=== PATIENT | male | born 1955 | race Caucasian/White ===

== ENCOUNTER → 2016-12-05 | Outpatient (CLI) | payer OTHER ==
[~2016-12-05] MED LIST: CALCTAB7 PO; HYDR50TA3 PO; LOSA1TAB38 PO; NF454 PO; POTA10CA28 PO
[2016-12-05 18:19] LABS: SYNOVIAL FLUID APPEARANCE BLOODY; SYNOVIAL FLUID COLOR RED; SYNOVIAL FLUID MONONUC RELAT 25.7 %; SYNOVIAL FLUID POLYNUC RELAT 74.3 %
== END | disposition home or self-care (01) ==
LOC: C.LABSPEC 17:29
PROVIDERS: ATTEND Orthopaedic Surgery
DX: M70.21 Olecranon bursitis, right elbow (principal)

== ENCOUNTER → 2016-12-05 | Outpatient (CLI) | payer OTHER | END | disposition home or self-care (01) | LOC: C.PATHSPEC 16:59 | PROVIDERS: ATTEND Orthopaedic Surgery | DX: M70.21 Olecranon bursitis, right elbow (principal) ==

== ENCOUNTER → 2017-03-14 | Outpatient (CLI) | payer OTHER ==
[2017-03-20 07:47] LABS: ALBUMIN % 49.72 %; ALPHA-2-GLOBULIN % 18.63 %; BETA GLOBULIN % 18.54 %; CREATININE UR 186 MG/DL (20-370); GAMMA GLOBULIN % 9.73 %
== END | disposition home or self-care (01) ==
LOC: C.LABSPEC 07:00
PROVIDERS: ATTEND Internal Medicine Hematology & Oncology
DX: D47.2 Monoclonal gammopathy (principal)

== ENCOUNTER → 2017-03-17 | Outpatient (CLI) | payer OTHER ==
[2017-03-17 12:08] LABS: BASO % 0.1 %; BASO ABS # 0.01 K/uL (0-0.2); COMPLETE YES; EOS % 1.4 %; HEMATOCRIT 44.1 % (42-52); IG% 0.2 %; LYMPH ABS # 1.49 K/uL (1.2-3.4); MEAN CELL VOLUME 88.4 fL (80-100); MEAN CORPUSCULAR HEMOGLOBIN 29.9 pg (25-34); MEAN CORPUSCULAR HGB CONC 33.8 g/dl (32-36); MEAN PLATELET VOLUME 9.7 fL (7.4-10.4); MONO % 8.5 %; NEUT % 72.8 %; PLATELET COUNT 214 K/uL (130-400); RED BLOOD COUNT 4.99 M/uL (4.7-6.1); WHITE BLOOD COUNT 8.74 K/uL (4.8-10.8)
[2017-03-17 12:52] LABS: ALT/SGPT 25 U/L (12-78); AST/SGOT 10 U/L (15-37); BLOOD UREA NITROGEN 22 mg/dl (7-18); BUN/CREATININE RATIO 23.3 (10-20); CALCIUM 9.5 mg/dl (8.5-10.1); CARBON DIOXIDE 31 mmol/L (21-32); CHLORIDE 105 mmol/L (98-107); CREATININE 0.93 mg/dl (0.60-1.40); GLUCOSE 90 mg/dl (70-99); POTASSIUM 3.5 mmol/L (3.5-5.1); SODIUM 142 mmol/L (136-145)
[2017-03-17 12:55] LABS: ALKALINE PHOSPHATASE 65 U/L (45-117)
[2017-03-18 15:37] LABS: FREE KAPPA 20.8 MG/L (3.3-19.4); FREE KAPPA/LAMBDA RATIO 1.32 (0.26-1.65); FREE LAMBDA 15.8 MG/L (5.7-26.3); GAMMA GLOBULIN 0.8 G/DL (0.8-1.7); TOTAL PROTEIN 6.8 G/DL (6.2-8.3)
== END | disposition home or self-care (01) ==
LOC: C.LABPBG 07:51
PROVIDERS: ATTEND Internal Medicine Hematology & Oncology
DX: D47.2 Monoclonal gammopathy (principal)

== ENCOUNTER 2023-10-21 12:38 | Inpatient (IN) ==
--- NOTE | 2023-10-21 12:49 | Emergency Department Note ---
Impression & Plan Chest pain, Elevated LFTs, Shortness of breath, Bradycardia ED Provider Note NAME: SHAY CLARK AGE: 68 SEX: M : 1955 ARRIVES VIA: Ambulance INFORMANT: Patient, ED PROVIDER(S): Desean Masterson MD CHIEF COMPLAINT: MEDICAL DECISION MAKING: Patient presented due to concern for chest pain and shortness of breath. IV was established and blood work that was obtained. Blood work shows a normal white count H&H and platelet count with normal kidney function and normal electrolytes. Lyme is negative. The patient does have elevated LFTs with a bilirubin of 2.7 AST 315 and ALT of 446. The patient's chest x-ray does not show any acute concerning findings. The patient's blood work had a negative troponin. Patient did have a transaminitis but has no right upper quadrant pains or right upper quadrant ultrasound was ordered. Patient was noted to have cholelithiasis but no evidence of acute cholecystitis. No biliary ductal dilatation. Patient currently asymptomatic at bedside. It is to be the on-call hospital service Dr. Beltre and the patient was admitted to the medicine service Discussion w/ other healthcare providers: Dr. Beltre inpatient medicines are Prior /Outside records reviewed: None Differential diagnosis: Differential Diagnostics, as interpreted by me: ECG: Sinus bradycardia, rate of 53, normal intervals, normal axis no ST elevations, T wave inversions anteriorly. Cardiac monitoring: An order was placed for continuous cardiac monitoring. The monitor shows a rate of 57 with bradycardic and rhythm. Patient was placed on pulse oximetry Medical decision rules: Heart score Imaging studies: I informally interpreted the patient's chest x-ray which does not show obvious pneumonia with formal report to follow. HPI: Patient presents due to concern for shortness of breath associated chest pain. The patient initially had a bout of this on Thursday as he was about to get in his car to go to [place]. The patient states that his chest pain is centralized with bands radiating down either side of the front portion of his chest. Patient states that this subsided. The patient states that he did develop some exertional shortness of breath while trying to move a [employer] tree on Thursday and this also dissipated. Patient states that today he had some similar symptoms with associated shortness of breath and chest pain. The patient did present to a local EMS/fire station where he was noted to be bradycardic and the patient did receive aspirin as well as atropine. The patient did have virtual resolution of his symptoms thereafter. Patient denies any falls or trauma no upper respiratory symptoms. Patient denies any leg swelling or calf pain and no recent surgeries procedures or hospitalizations. No prior history of DVT or PE. Patient does take verapamil PAST MEDICAL HISTORY: See Below PAST SURGICAL HISTORY: See Below SOCIAL HISTORY: See Below HOME MEDICATIONS: See Below ALLERGIES: See Below VITALS: See Below PHYSICAL EXAMINATION: GENERAL: NAD, non-toxic. Wearing glasses EYE EXAM: Normal conjunctiva. PERRL, no anisocoria and EOM's grossly intact w/o pain. OROPHARYNX: Moist mucus membranes, grossly normal dentition. NECK: Supple, no nuchal rigidity, no adenopathy, non-tender. No signs of meningismus. FROM of the neck with good chin to chest and neck extension. No stridor. LUNGS: Clear to auscultation. Normal chest wall mechanics. HEART: Bradycardic and, no MRG. ABDOMEN: Abdomen soft, non-tender, no masses, no rebound or guarding. BACK: No CVA TTP. SKIN: No rashes and no bruising. UPPER EXTREMITIES: Upper extremities are grossly normal. LOWER EXTREMITIES: Grossly normal, no edema. Negative Homans' sign bilaterally NEURO EXAM: A&O x3, cranial nerves II-XII grossly intact, normal speech, moves all 4 extremities. Past Med/Surg History Medical History History of kidney stones Hypertension COVID-19 Social History Smoking Status: Never smoker Second Hand Exposure: No; Do You Dip or Chew Tobacco: No; Hx Alcohol Use: Yes Hx Substance Use: No Preferred Language: Macanese Communication Ability: Effective Bus Aide Required: No Beliefs That Will Affect Care: None Current Living Situation: Spouse Other Information That Helps Us Care for You: No Feels Safe at Home: Yes Safety Concerns: Feels Safe At This Time Assistive Devices: None Allergies Allergies Allergy/AdvReac Type Severity Reaction Status Date / Time No Known Allergies Allergy Verified 10/21/23 16:58 Home Meds Home Medications Medication Instructions Recorded Confirmed hydrochlorothiazide 50 mg tablet 50 mg PO DAILY 07/26/21 10/21/23 losartan 100 mg tablet 100 mg PO DAILY 07/26/21 10/21/23 potassium chloride 20 mEq 40 meq PO DAILY 07/26/21 10/21/23 tablet,extended release(part/cryst) verapamil 240 mg 24 hr 240 mg PO DAILY 07/26/21 10/21/23 capsule,extended release cholecalciferol (vitamin D3) 50 150 mcg PO DAILY 10/21/23 10/21/23 mcg (2,000 unit) capsule (Vitamin D3) Results & Data (ED) Vital Signs Vital Signs - 24 hr 10/21/23 17:30 10/21/23 17:40 10/21/23 17:45 Pulse Rate 38 L 40 L 38 L Pulse Rate from SpO2 Sensor 39 L 39 L Respiratory Rate 16 12 Pulse Oximetry 97 98 Home Medications Current Medication List: was personally reviewed by me Laboratory Data Attestation: I reviewed the patient's lab results. 10/22/23 06:56 10/22/23 06:56 Lab Results 10/21/23 10/21/23 Range/Units 12:50 16:40 WBC 7.67 (4.8-10.8) K/ul RBC 5.04 (4.70-6.10) M/uL Hgb 14.9 (14.0-18.0) g/dl Hct 43.6 (42.0-52.0) % MCV 86.5 (80.0-100.0) fL MCH 29.6 (25.0-34.0) pg MCHC 34.2 (32.0-36.0) g/dL RDW Std Deviation 38.4 (36.4-46.3) fL RDW Coeff of Al 12.1 (11.5-14.5) % Plt Count 231 (130-400) K/uL MPV 10.0 (9.4-12.4) fL Immature Gran % (Auto) 0.5 % Neut % (Auto) 75.7 % Lymph % (Auto) 13.3 % [place] % (Auto) 8.7 % Eos % (Auto) 1.4 % Baso % (Auto) 0.4 % Neut # (Auto) 5.80 (1.40-6.50) K/uL Lymph # (Auto) 1.02 L (1.20-3.40) K/uL [place] # (Auto) 0.67 H (0.11-0.59) K/uL Eos # (Auto) 0.11 (0.00-0.50) K/uL Baso # (Auto) 0.03 (0.00-0.20) K/uL Immature Gran # (Auto) 0.04 (0.01-0.20) K/uL PT 11.8 (9.0-12.0) Seconds INR 1.1 (0.9-1.1) APTT 28 (21-31) Seconds PTT Ratio 1.0 Sodium 142 (136-145) mmol/L Potassium 3.6 (3.5-5.1) mmol/L Chloride 104 (98-107) mmol/L Carbon Dioxide 30 (21-32) mmol/L Anion Gap 8 (3-11) BUN 24 H (6-23) mg/dl Creatinine 1.06 (0.6-1.4) mg/dl Est Cr Clr Drug Dosing 77.5 ml/min Est GFR ( Amer) 82.6 ml/min Est GFR (Non-Af Amer) 71.3 ml/min BUN/Creatinine Ratio 22.6 H (10-20) Glucose 104 H (70-99(Fasting)) mg/dl Calcium 9.8 (8.6-10.3) mg/dl Phosphorus 3.2 (2.5-4.9) mg/dl Magnesium 1.9 (1.7-2.4) mg/dl Iron 109 (35-175) mcg/dl TIBC 293 (250-450) mcg/dl Unsaturated IBC 184 (155-355) mcg/dl Transferrin % Sat 37 (20-50) % Total Bilirubin 2.7 H (0.2-1.0) mg/dl AST 315 H (13-39) U/L ALT 446 H (7-52) U/L Alkaline Phosphatase 191 H (34-104) U/L Total Creatine Kinase 95 (30-223) U/L Troponin I High Sens 9.5 10.4 (0-20) pg/ml Total Protein 7.6 (6.0-8.3) gm/dl Albumin 4.4 (3.4-5.0) gm/dl Globulin 3.2 (2.5-4.0) gm/dl Albumin/Globulin Ratio 1.4 (0.9-2) Lipase 38 (11-82) U/L TSH 1.318 (0.300-4.500) uIu/ml Acetaminophen < 3 L (10-30) ug/ml Ethyl Alcohol mg/dL < 10.0 (<10.0) mg/dl Lyme Disease IgG Ab Negative (Negative) Lyme Disease IgM Ab Negative (Negative) Administered Medications Lorazepam 0.5 mg/ Syringe 0.5 mls @ 2 mls/min IV ONE PRN PRN Reason: 30 mins - 1 hour prior to MRI Stop: 11/20/23 18:26 Last Admin: 10/21/23 19:20 Dose: 2 mls/min Documented By: ZULY Lactated Ringer's (Lr) 1,000 mls @ 125 mls/hr IV .Q8H YURIY Stop: 11/20/23 20:47 Last Admin: 10/22/23 14:44 Dose: 125 mls/hr Documented By: Infusion: 10/22/23 14:35 Dose: Infused Documented By: Admin: 10/22/23 06:30 Dose: 125 mls/hr Documented By: Infusion: 10/22/23 06:19 Dose: Infused Documented By: Admin: 10/21/23 22:19 Dose: 125 mls/hr Documented By: GH Losartan Potassium (Losartan Potassium 50 Mg Tab) 100 mg PO DAILY YURIY Stop: 11/21/23 08:59 Last Admin: 10/22/23 10:12 Dose: 100 mg Documented By: Potassium Chloride (Potassium Chloride Crtab 20 Meq Tabcr) 40 meq PO DAILY YURIY Stop: 11/21/23 08:59 Last Admin: 10/22/23 10:12 Dose: 40 meq Documented By: Discontinued Medications Hydrochlorothiazide (Hydrochlorothiazide 25 Mg Tab) 50 mg PO DAILY YURIY Stop: 11/21/23 08:59 Last Admin: 10/22/23 10:13 Dose: 50 mg Documented By: Sodium Chloride (Nss) 500 mls @ 999 mls/hr IV .Q31M ONE Stop: 10/21/23 14:28 Last Infusion: 10/21/23 14:46 Dose: Infused Documented By: Admin: 10/21/23 14:12 Dose: 999 mls/hr Documented By: HOSEA Imaging Data Radiologist's Impression: Chest X-Ray 10/21/23 12:56 XR chest 1V portable HISTORY: 68 years-old Male Chest pain, nonspecific COMPARISON: 07/26/2021 TECHNIQUE: AP view of the chest FINDINGS: Cardiac silhouette is enlarged. There is no pneumothorax, pleural effusion or airspace consolidation. The patient is mildly rotated towards the left. Unchanged sclerotic appearance of the shoulders, possibly representing Paget's disease. IMPRESSION: No acute process of the chest. ACT 112: Negative or not required by law. The above report was generated using voice recognition software. It may contain grammatical, syntax or spelling errors. Electronically signed by: Ronny Alexandra M.D. 10/21/2023 1:34 PM Gallbladder Ultrasound 10/21/23 13:58 US gallbladder CLINICAL HISTORY: Transaminitis. COMPARISON STUDY: No previous studies for comparison. FINDINGS: Hepatic echogenicity is increased. No suspicious hepatic lesions are present. There is a 1.1 cm hepatic cyst. There is no biliary ductal dilatation. Common bile duct measures 6 mm in caliber. A gallstone within the gallbladder is present. No sonographic Medel sign was elicited. Mild gallbladder distention is noted. There is no gallbladder wall thickening. Pancreatic body is normal. Head and tail are obscured. There is no right hydronephrosis. 2.3 cm right renal cyst is incidentally noted. IMPRESSION: 1. Cholelithiasis. No sonographic evidence for acute cholecystitis. 2. Increased hepatic echogenicity suggestive of hepatic steatosis. 3. No biliary ductal dilatation. ACT 112: Negative or not required by law. Electronically signed by: Benedict Barrera M.D. 10/21/2023 3:50 PM Cholangiopancreatography MRI 10/21/23 17:35 Exam(s): MRI MRCP EXAM: MR Abdomen Without Intravenous Contrast, MRCP Protocol CLINICAL HISTORY: Reason for exam: ?choledocholithiasis. TECHNIQUE: Multiplanar magnetic resonance images of the abdomen without intravenous contrast using MRCP protocol. COMPARISON: No relevant prior studies available. FINDINGS: Bile ducts: Common bile duct is unremarkable. No choledocholithiasis. Common bile duct is within normal limits. Pancreatic duct is unremarkable. Gallbladder: Cholelithiasis. Liver: Multiple intrahepatic cysts. Pancreas: Unremarkable. No ductal dilation. Spleen: Unremarkable. No splenomegaly. Adrenals: Unremarkable. No mass. Kidneys and ureters: Unremarkable. No hydronephrosis. Stomach and bowel: Unremarkable. No obstruction. IMPRESSION: Cholelithiasis without evidence of acute cholecystitis No choledocholithiasis. Electronically signed by: Tutu Maher MD 10/21/23 21:26 PM Discharge Plan Visit Data Chief Complaint: Bradycardia ED Provider: Desean Masterson Discharge Problem: Chest pain, Elevated LFTs, Shortness of breath, Bradycardia Patient Disposition: Admitted As Inpatient Discharge Instructions Interventions: ED Discharge Assessment Last Done: 10/21/23 19:50 Discharge Problem: Chest pain Qualifiers: Chest pain type: unspecified Qualified Code(s): R07.9 - Chest pain, unspecified
[2023-10-21 13:14] LABS: Basophils # (auto) 0.03 K/uL (0.00-0.20); Basophils % (auto) 0.4 %; Eosinophils # (auto) 0.11 K/uL (0.00-0.50); Eosinophils % (auto) 1.4 %; Hematocrit (blood only) 43.6 % (42.0-52.0); Hemoglobin 14.9 g/dl (14.0-18.0); Immature Granulocytes # (auto) 0.04 K/uL (0.01-0.20); Immature Granulocytes % (auto) 0.5 %; Lymphocytes # (auto) 1.02 K/uL (1.20-3.40); Lymphocytes % (auto) 13.3 %; Mean Corpuscular Hemoglobin 29.6 pg (25.0-34.0); Mean Corpuscular Hgb Conc 34.2 g/dL (32.0-36.0); Mean Corpuscular Volume 86.5 fL (80.0-100.0); Monocytes # (auto) 0.67 K/uL (0.11-0.59); Monocytes % (auto) 8.7 %; Neutrophils % (auto) 75.7 %; Platelet Count 231 K/uL (130-400); RDW Coefficient of Variation 12.1 % (11.5-14.5); RDW Standard Deviation 38.4 fL (36.4-46.3); Red Blood Count 5.04 M/uL (4.70-6.10); White Blood Count 7.67 K/ul (4.8-10.8)
[2023-10-21 13:27] LABS: Albumin Globulin Ratio 1.4 (0.9-2); Albumin Level 4.4 gm/dl (3.4-5.0); BUN Creatinine Ratio 22.6 (10-20); Bilirubin,Total 2.7 mg/dl (0.2-1.0); Calcium 9.8 mg/dl (8.6-10.3); Creatinine Clr Calc Pharmacy 77.5 ml/min; Est GFR (African American) 82.6 ml/min; Est GFR (Non-African American) 71.3 ml/min; Globulin 3.2 gm/dl (2.5-4.0); Magnesium 1.9 mg/dl (1.7-2.4); Phosphorus 3.2 mg/dl (2.5-4.9); Potassium 3.6 mmol/L (3.5-5.1); Total Protein 7.6 gm/dl (6.0-8.3)
[2023-10-21 13:31] LABS: Troponin I High Sensitivity 9.5 pg/ml (0-20)
--- NOTE | 2023-10-21 13:37 | XRay Report ---
XR chest 1V portable HISTORY: 68 years-old Male Chest pain, nonspecific COMPARISON: 07/26/2021 TECHNIQUE: AP view of the chest FINDINGS: Cardiac silhouette is enlarged. There is no pneumothorax, pleural effusion or airspace consolidation. The patient is mildly rotated towards the left. Unchanged sclerotic appearance of the shoulders, pos sibly representing Paget's disease. IMPRESSION: No acute process of the chest. ACT 112: Negative or not required by law. The above report was generated using voice recognition software. It may contain grammatical, syntax o r spelling errors. Electronically signed by: Ronny Alexandra M.D. 10/21/2023 1:34 PM
[2023-10-21 13:38] LABS: INR 1.1 (0.9-1.1); Partial Thromboplastin Time 28 Seconds (21-31); Prothrombin Time 11.8 Seconds (9.0-12.0)
[2023-10-21 13:44] LABS: Lyme Ab IgG w/WB Rflx Negative (Negative); Lyme Ab IgM w/WB Rflx Negative (Negative)
[2023-10-21] MEDS ORDERED: SODIUM CHLORIDE 0.9% 500 ML IV ONE (13:58)
--- NOTE | 2023-10-21 15:52 | Ultrasound Report ---
US gallbladder CLINICAL HISTORY: Transaminitis. COMPARISON STUDY: No previous studies for comparison. FINDINGS: Hepatic echogenicity is increased. No suspicious hepatic lesions are present. There is a 1. 1 cm hepatic cyst. There is no biliary ductal dilatation. Common bile duct measures 6 mm in caliber. A gallstone within the gallbladder is present. No sonographic Medel sign was elicited. Mild gallblad nyla distention is noted. There is no gallbladder wall thickening. Pancreatic body is normal. Head and tail are obscured. There is no right hydronephrosis. 2.3 cm right renal cyst is incidentally noted. IMPRESSION: 1. Cholelithiasis. No sonographic evidence for acute cholecystitis. 2. Increased hepatic echogenicity suggestive of hepatic steatosis. 3. No biliary ductal dilatation. ACT 112: Negative or not required by law. Electronically signed by: Benedict Barrera M.D. 10/21/2023 3:50 PM
--- NOTE | 2023-10-21 17:12 | History & Physical Report ---
Date of Service October 21, 2023 Assessment & Plan (1) Elevated LFTs: Plan: Suspect he is having biliary colic and choledocholithiasis although given absence of pain currently suspect he has passed the stone or just no longer obstructing. Will get MRCP to evaluate whether ERCP is necessary, defer gastroenterology consult pending result of this Trend LFTs No fever, WBC or imaging changes concerning for infection therefore holding off antibiotics currently Ultimately I suspect he will need cholecystectomy for biliary colic with elevation in LFTs unless alternative cause of his symptoms can be found (2) Sinus bradycardia: Plan: Reports HR 44 in his PCP office 2 weeks ago therefore low suspicion this is acute and driving his symptoms; his heart rate is still low in the 30s and patient is asymptomatic. Low suspicion of ACS given 4 hours of pain today and entire day of pain on Thursday without elevation in troponin Hold verapamil - only need to treat with further atropine if hypotensive, pat ient symptomatic or HR < 30 Consult cardiology (3) Hypertension: Plan: Continue losartan and hydrochlorothiazide Hold verapamil Plan VTE Prophylaxis - deferred on admission pending further workup Diet - NPO Disposition - admit to PCU Admission and Anticipated Discharge Date Admission Date: October 21, 2023 History of Present Illness Chief Complaint: Epigastric pain and shortness of breath Primary Care Provider: Mart Davalos Aman Garcia is a 68 year old male who presents to the ER with shortness of breath and epigastric pain. The two symptoms appear to correlate and are intermittent - he is currently pain free with no shortness of breath when seen in the ER. Epigastric pain today started around 9am - started mildly and progressively got worse. Improved with atropine given by EMS and IV fluids given in the ER. Associated nausea. Pain constant in upper abdomen radiating to both sides. Severity 8/10 at worse which occurred within a half hour of starting. Lasted total of 4 hours. No association with exertion or eating. He was given atropine by EMS due to bradycardia which he reports helped his symptoms although his heart rate is currently in the low 30s and he is not having any symptoms at this time. He notes two other similar episodes on Thursday and Thursday. 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 On Thursday it occurred while dragging the [employer] tree although this was more shortness of breath than the pain. He reports no recent changes to his medications and he has been on verapamil for years with no recent changes to the dosing. Although he does note during his last PCP appointment 2 weeks ago his heart rate was low in the 40s and his doctor did mention something about the verapamil but he stopped the tamsulosin at that time instead. He denies any prior issues with his liver, gallbladder or gallstones. Allergies Allergy/AdvReac Type Severity Reaction Status Date / Time No Known Allergies Allergy Verified 10/21/23 16:58 Home Medications Medication Instructions Recorded Confirmed Type hydrochlorothiazide 50 mg tablet 50 mg PO DAILY 07/26/21 10/21/23 History losartan 100 mg tablet 100 mg PO DAILY 07/26/21 10/21/23 History potassium chloride 20 mEq 40 meq PO DAILY 07/26/21 10/21/23 History tablet,extended release(part/cryst) verapamil 240 mg 24 hr 240 mg PO DAILY 07/26/21 10/21/23 History capsule,extended release cholecalciferol (vitamin D3) 50 150 mcg PO DAILY 10/21/23 10/21/23 History mcg (2,000 unit) capsule (Vitamin D3) Past Med/Surg History Medical History (Updated 10/22/23 @ 06:33 by Brandon Beltre MD) History of kidney stones Hypertension COVID-19 Social History Smoking Status: Never smoker Second Hand Exposure: No; Do You Dip or Chew Tobacco: No; Hx Alcohol Use: Yes Hx Substance Use: No Preferred Language: Ukrainian Communication Ability: Effective 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 Beliefs That Will Affect Care: None Current Living Situation: Spouse Other Information That Helps Us Care for You: No Feels Safe at Home: Yes Safety Concerns: Feels Safe At This Time Assistive Devices: Glasses Review of Systems Review of Systems: All systems reviewed & are unremarkable except as noted in HPI & below Physical Exam Constitutional: WD/WN, vitals as above Eyes: + anicteric sclerae; normal pupil size ENMT: external ear and nose normal, oropharynx normal Neck: trachea midline, no thyromegaly Respiratory: normal respiratory effort, lungs clear to auscultation Cardiovascular: Rate/Rhythm: regular rhythm and + bradycardic Heart Sounds: no murmur Extremities: normal capillary refill; no calf tenderness and no pedal edema Gastrointestinal (Abdomen): Inspection/Auscultation: abdomen normal to inspection; abdomen not distended Percussion/Palpation: + abdomen tender (mild epigastric, no RUQ pain) and abdomen soft; no guarding and abdomen not rigid Musculoskeletal: no cyanosis or clubbing, extremities motor strength 5/5 Skin: no rashes, warm and dry Neurologic: moves all extremities and awake; not confused Psychiatric: A+Ox3, euthymic affect Results & Data Results & Data Vital Signs (Past 12 Hours) Vital Signs Temp Pulse Pulse Resp BP BP Pulse Ox 10/21/23 15:00 54 L 20 159/88 H 96 10/21/23 13:07 58 L 18 159/88 H 97 10/21/23 13:07 97 10/21/23 13:03 58 L 18 98 10/21/23 12:51 36.8 C 53 L 18 159/88 H 95 10/21/23 12:50 55 L O2 Del Method 10/21/23 15:00 10/21/23 13:07 Room Air 10/21/23 13:07 Room Air 10/21/23 13:03 Room Air 10/21/23 12:51 Room Air 10/21/23 12:50 Laboratory Results Abnormal lab results 10/21/23 10/21/23 Range/Units 12:50 16:40 Lymph # (Auto) 1.02 L (1.20-3.40) K/uL [place] # (Auto) 0.67 H (0.11-0.59) K/uL BUN 24 H (6-23) mg/dl BUN/Creatinine Ratio 22.6 H (10-20) Glucose 104 H (70-99(Fasting)) mg/dl Total Bilirubin 2.7 H (0.2-1.0) mg/dl AST 315 H (13-39) U/L ALT 446 H (7-52) U/L Alkaline Phosphatase 191 H (34-104) U/L Acetaminophen < 3 L (10-30) ug/ml Diagnostic Findings XR chest 1V portable HISTORY: 68 years-old Male Chest pain, nonspecific COMPARISON: 07/26/2021 TECHNIQUE: AP view of the chest FINDINGS: Cardiac silhouette is enlarged. There is no pneumothorax, pleural effusion or airspace consolidation. The patient is mildly rotated towards the left. Unchanged sclerotic appearance of the shoulders, possibly representing Paget's disease. IMPRESSION: No acute process of the chest. US gallbladder CLINICAL HISTORY: Transaminitis. COMPARISON STUDY: No previous studies for comparison. FINDINGS: Hepatic echogenicity is increased. No suspicious hepatic lesions are present. There is a 1.1 cm hepatic cyst. There is no biliary ductal dilatation. Common bile duct measures 6 mm in caliber. A gallstone within the gallbladder is present. No sonographic Medel sign was elicited. Mild gallbladder distention is noted. There is no gallbladder wall thickening. Pancreatic body is normal. Head and tail are obscured. There is no right hydronephrosis. 2.3 cm right renal cyst is incidentally noted. IMPRESSION: 1. Cholelithiasis. No sonographic evidence for acute cholecystitis. 2. Increased hepatic echogenicity suggestive of hepatic steatosis. 3. No biliary ductal dilatation. Medications Administered ER Medications Given: Normal saline 500 mL bolus ECG Rate (beats per minute): 53 Rhythm: sinus bradycardia Findings: + nonspecific-ST abn Comparison ECG Date: from (July 26, 2021) Code Status & VTE Plan Code Status Full VTE Prophylaxis Plan VTE Prophylaxis will be ordered: No PG Care Time/CCT Total # of Minutes Spent Total Time Spent with Patient: Total time spent is greater than 50% in coordination of care (as documented) at patient's floor/unit and/or counseling patient: Coding Level of Care Code 54966 INT INP/OBS CARE 3/75MIN Diagnoses Elevated LFTs R79.89 Sinus bradycardia R00.1 Hypertension I10
[2023-10-21 17:17] LABS: Troponin I High Sensitivity 10.4 pg/ml (0-20)
[2023-10-21 17:24] LABS: Thyroid Stimulating Hormone 1.318 uIu/ml (0.300-4.500)
[2023-10-21] MEDS ORDERED: LORazepam 0.5 MG in SYRINGE 0.25 ML IV PRN (18:27)
--- NOTE | 2023-10-21 18:44 | XRay Report ---
XR orbits for MRI HISTORY: 68 years-old Male Screening for foreign body for MRI COMPARISON: Head CT 07/26/2021 TECHNIQUE: 3 views of the orbits FINDINGS: No opaque foreign body of the orbits. Paranasal sinuses and mastoid air cells appear clear. Dental am algam hardware. IMPRESSION: No opaque foreign body in the orbits. ACT 112: Negative or not required by law. The above report was generated using voice recognition software. It may contain grammatical, syntax o r spelling errors. Electronically signed by: Ronny Alexandra M.D. 10/21/2023 6:43 PM
--- NOTE | 2023-10-21 21:27 | Magnetic Resonance Report ---
Exam(s): MRI MRCP EXAM: MR Abdomen Without Intravenous Contrast, MRCP Protocol CLINICAL HISTORY: Reason for exam: ?choledocholithiasis. TECHNIQUE: Multiplanar magnetic resonance images of the abdomen without intravenous contrast using MRCP protocol. COMPARISON: No relevant prior studies available. FINDINGS: Bile ducts: Common bile duct is unremarkable. No choledocholithiasis. Common bile duct is within normal limits. Pancreatic duct is unremarkable. Gallbladder: Cholelithiasis. Liver: Multiple intrahepatic cysts. Pancreas: Unremarkable. No ductal dilation. Spleen: Unremarkable. No splenomegaly. Adrenals: Unremarkable. No mass. Kidneys and ureters: Unremarkable. No hydronephrosis. Stomach and bowel: Unremarkable. No obstruction. IMPRESSION: Cholelithiasis without evidence of acute cholecystitis No choledocholithiasis. Electronically signed by: Tutu Maher MD 10/21/23 21:26 PM
[2023-10-21] MEDS: LACTATED RINGER'S 1,000 ML IV SCH (22:19)
[2023-10-21] MEDS ORDERED: ATROPINE SULFATE 0.1 MG/ML 10ML SYR IV PRN (22:50)
[2023-10-22] MEDS: LACTATED RINGER'S 1,000 ML IV SCH ×3 (06:30→22:28)
[2023-10-22 07:34] LABS: Basophils # (auto) 0.02 K/uL (0.00-0.20); Basophils % (auto) 0.4 %; Eosinophils # (auto) 0.24 K/uL (0.00-0.50); Eosinophils % (auto) 4.3 %; Hematocrit (blood only) 39.2 % (42.0-52.0); Hemoglobin 13.6 g/dl (14.0-18.0); Immature Granulocytes # (auto) 0.02 K/uL (0.01-0.20); Immature Granulocytes % (auto) 0.4 %; Lymphocytes # (auto) 1.27 K/uL (1.20-3.40); Mean Corpuscular Hgb Conc 34.7 g/dL (32.0-36.0); Mean Corpuscular Volume 86.3 fL (80.0-100.0); Mean Platelet Volume 9.9 fL (9.4-12.4); Monocytes # (auto) 0.51 K/uL (0.11-0.59); Monocytes % (auto) 9.2 %; Neutrophils # (auto) 3.47 K/uL (1.40-6.50); Neutrophils % (auto) 62.7 %; Platelet Count 188 K/uL (130-400); RDW Coefficient of Variation 12.2 % (11.5-14.5); RDW Standard Deviation 38.5 fL (36.4-46.3); Red Blood Count 4.54 M/uL (4.70-6.10); White Blood Count 5.53 K/ul (4.8-10.8)
[2023-10-22 07:43] LABS: Albumin Level 3.8 gm/dl (3.4-5.0); BUN Creatinine Ratio 18.6 (10-20); Bilirubin Direct 2.8 mg/dl (0-0.2); Bilirubin,Total 5.1 mg/dl (0.2-1.0); Calcium 9.5 mg/dl (8.6-10.3); Creatinine Clr Calc Pharmacy 93.2 ml/min; Est GFR (African American) 102.5 ml/min; Est GFR (Non-African American) 88.5 ml/min; Potassium 3.8 mmol/L (3.5-5.1); Total Protein 6.6 gm/dl (6.0-8.3)
--- NOTE | 2023-10-22 08:42 | Hospitalist Progress Note ---
Date of Service October 22, 2023 Assessment & Plan (1) Elevated LFTs: Plan: Suspect he is having biliary colic and suspect he has passed the stone or just no longer obstructing. US without findings of cholecystitis, gallstones present, hepatic steatosis MRCP showed gallstones, negative for choledocholithiasis Trend LFTs - bilirubin increased, AST/ALT/ALK phos similar 10/22 remain elevated No fever, WBC or imaging changes concerning for infection therefore holding off antibiotics currently -consult general surgery (2) Sinus bradycardia: Plan: Reports HR 44 in his PCP office 2 weeks ago therefore low suspicion this is acute and driving his symptoms; his heart rate is still low in the 30s and patient is asymptomatic. Low suspicion of ACS given 4 hours of pain today and entire day of pain on Thursday without elevation in troponin Hold verapamil - only need to treat with further atropine if hypotensive, patient symptomatic or HR < 30 Consult cardiology (3) Hypertension: Plan: Continue losartan and hydrochlorothiazide Hold verapamil Plan VTE Prophylaxis - deferred on admission pending further workup Diet - NPO Disposition - admit to PCU Admission and Anticipated Discharge Date Admission Date: October 21, 2023 Physical Exam Physical Exam: PHYSICAL EXAMINATION Last 24h vital signs reviewed, see documentation in flowsheet General: comfortable appearing, no distress HEENT: Normocephalic, atraumatic, pupils round and equal, sclerae anicteric, no conjunctival injection, moist mucus membranes Lungs: Normal respiratory effort. Clear to auscultation bilaterally. No RRW Heart: Regular rate and rhythm, no murmurs. No JVD Abdomen: Soft, nontender, nondistended. Bowel sounds present. Extremities: Warm, dry, well-perfused. No extremity edema. Neuro: Alert and oriented x 4, face symmetric, moves 4 extremities well Psych: Normal affect and behavior Results & Data Results & Data Vital Signs (Past 12 Hours) Vital Signs Temp Pulse Pulse Resp BP Pulse Ox O2 Del Method 10/22/23 08:00 36.4 C L 50 L 16 129/71 96 Room Air 10/22/23 07:28 42 L 10/22/23 02:37 36.5 C 49 L 18 118/71 98 Room Air 10/21/23 23:03 37 L 10/21/23 22:54 36.8 C 39 L 17 115/71 97 Room Air 10/21/23 21:38 39 L 10/21/23 20:58 36.5 C 43 L 18 130/67 98 Room Air 10/21/23 20:48 36.5 C 43 L 18 130/67 98 Room Air Laboratory Results Chest X-Ray 10/21/23 12:56 XR chest 1V portable HISTORY: 68 years-old Male Chest pain, nonspecific COMPARISON: 07/26/2021 TECHNIQUE: AP view of the chest FINDINGS: Cardiac silhouette is enlarged. There is no pneumothorax, pleural effusion or airspace consolidation. The patient is mildly rotated towards the left. Unchanged sclerotic appearance of the shoulders, possibly representing Paget's disease. IMPRESSION: No acute process of the chest. ACT 112: Negative or not required by law. The above report was generated using voice recognition software. It may contain grammatical, syntax or spelling errors. Electronically signed by: Ronny Alexandra M.D. 10/21/2023 1:34 PM Gallbladder Ultrasound 10/21/23 13:58 US gallbladder CLINICAL HISTORY: Transaminitis. COMPARISON STUDY: No previous studies for comparison. FINDINGS: Hepatic echogenicity is increased. No suspicious hepatic lesions are present. There is a 1.1 cm hepatic cyst. There is no biliary ductal dilatation. Common bile duct measures 6 mm in caliber. A gallstone within the gallbladder is present. No sonographic Medel sign was elicited. Mild gallbladder distention is noted. There is no gallbladder wall thickening. Pancreatic body is normal. Head and tail are obscured. There is no right hydronephrosis. 2.3 cm right renal cyst is incidentally noted. IMPRESSION: 1. Cholelithiasis. No sonographic evidence for acute cholecystitis. 2. Increased hepatic echogenicity suggestive of hepatic steatosis. 3. No biliary ductal dilatation. ACT 112: Negative or not required by law. Electronically signed by: Benedict Barrera M.D. 10/21/2023 3:50 PM Cholangiopancreatography MRI 10/21/23 17:35 Exam(s): MRI MRCP EXAM: MR Abdomen Without Intravenous Contrast, MRCP Protocol CLINICAL HISTORY: Reason for exam: ?choledocholithiasis. TECHNIQUE: Multiplanar magnetic resonance images of the abdomen without intravenous contrast using MRCP protocol. COMPARISON: No relevant prior studies available. FINDINGS: Bile ducts: Common bile duct is unremarkable. No choledocholithiasis. Common bile duct is within normal limits. Pancreatic duct is unremarkable. Gallbladder: Cholelithiasis. Liver: Multiple intrahepatic cysts. Pancreas: Unremarkable. No ductal dilation. Spleen: Unremarkable. No splenomegaly. Adrenals: Unremarkable. No mass. Kidneys and ureters: Unremarkable. No hydronephrosis. Stomach and bowel: Unremarkable. No obstruction. IMPRESSION: Cholelithiasis without evidence of acute cholecystitis No choledocholithiasis. Electronically signed by: Tutu Maher MD 10/21/23 21:26 PM Orbit X-Ray 10/21/23 18:17 XR orbits for MRI HISTORY: 68 years-old Male Screening for foreign body for MRI COMPARISON: Head CT 07/26/2021 TECHNIQUE: 3 views of the orbits FINDINGS: No opaque foreign body of the orbits. Paranasal sinuses and mastoid air cells appear clear. Dental amalgam hardware. IMPRESSION: No opaque foreign body in the orbits. ACT 112: Negative or not required by law. The above report was generated using voice recognition software. It may contain grammatical, syntax or spelling errors. Electronically signed by: Ronny Alexandra M.D. 10/21/2023 6:43 PM Abnormal lab results 10/21/23 10/21/23 10/22/23 Range/Units 12:50 16:40 06:56 RBC 4.54 L (4.70-6.10) M/uL Hgb 13.6 L (14.0-18.0) g/dl Hct 39.2 L (42.0-52.0) % Lymph # (Auto) 1.02 L (1.20-3.40) K/uL [place] # (Auto) 0.67 H (0.11-0.59) K/uL BUN 24 H (6-23) mg/dl BUN/Creatinine Ratio 22.6 H (10-20) Glucose 104 H (70-99(Fasting)) mg/dl Total Bilirubin 2.7 H 5.1 H D (0.2-1.0) mg/dl Direct Bilirubin 2.8 H (0-0.2) mg/dl AST 315 H 249 H (13-39) U/L ALT 446 H 470 H (7-52) U/L Alkaline Phosphatase 191 H 213 H (34-104) U/L Acetaminophen < 3 L (10-30) ug/ml PG Care Time/CCT Total # of Minutes Spent Total Time Spent with Patient: Total time spent is greater than 50% in coordination of care (as documented) at patient's floor/unit and/or counseling patient: Coding Diagnoses Elevated LFTs R79.89 Sinus bradycardia R00.1 Hypertension I10
--- NOTE | 2023-10-22 08:55 | Electrocardiogram Report ---
Test Reason : Blood Pressure : / mmHG Vent. Rate : 053 BPM Atrial Rate : 053 BPM P-R Int : 158 ms QRS Dur : 104 ms QT Int : 428 ms P-R-T Axes : 049 024 058 degrees QTc Int : 401 ms Sinus bradycardia Diffuse Nonspecific T wave abnormality Abnormal ECG When compared with ECG of 26-JUL-2021 16:43, No significant change Confirmed by Steve Duong ([id number]) on 10/22/2023 8:55:15 AM Referred By: Confirmed By:Steve Duong
[2023-10-22] MEDS ORDERED: hydroCHLOROthiazide 25 MG TAB PO SCH (09:00)
[2023-10-22] MEDS ORDERED: POTASSIUM CHLORIDE CRTAB 20 MEQ TABCR PO SCH (09:00)
--- NOTE | 2023-10-22 09:50 | XCELERA ---
[id number]
[2023-10-22] MEDS: LOSARTAN POTASSIUM 50 MG TAB PO SCH (10:12)
--- NOTE | 2023-10-22 10:20 | Surgery Consultation ---
Date of Consultation October 22, 2023 Assessment & Plan (1) Elevated LFTs: would recommend GI consult and ERCP will follow likely will see as outpatient after ERCP and schedule elective lap gunjan; no signs of cholecystitis History of Present Illness Attending Physician: Beth López MD History of Present Illness This is a 68 year old male epigastric pain that presented to ED and workup showed gallstones without signs of cholecystitis. He had associated nausea but no vomiting. His LFTs were elevated but MRCP was negative for common duct stone. His TB is elevated to over 5 this AM. Allergies Allergy/AdvReac Type Severity Reaction Status Date / Time No Known Allergies Allergy Verified 10/21/23 16:58 Home Medications Medication Instructions Recorded Confirmed Type hydrochlorothiazide 50 mg tablet 50 mg PO DAILY 07/26/21 10/21/23 History losartan 100 mg tablet 100 mg PO DAILY 07/26/21 10/21/23 History potassium chloride 20 mEq 40 meq PO DAILY 07/26/21 10/21/23 History tablet,extended release(part/cryst) verapamil 240 mg 24 hr 240 mg PO DAILY 07/26/21 10/21/23 History capsule,extended release cholecalciferol (vitamin D3) 50 150 mcg PO DAILY 10/21/23 10/21/23 History mcg (2,000 unit) capsule (Vitamin D3) Patient History Medical History (Updated 10/22/23 @ 06:33 by Brandon Beltre MD) History of kidney stones Hypertension COVID-19 Social History Smoking Status: Never smoker Second Hand Exposure: No; Do You Dip or Chew Tobacco: No; Hx Alcohol Use: Yes Hx Substance Use: No Preferred Language: Yakut Communication Ability: Effective Bmet Required: No Beliefs That Will Affect Care: None Current Living Situation: Spouse Other Information That Helps Us Care for You: No Feels Safe at Home: Yes Safety Concerns: Feels Safe At This Time Assistive Devices: Glasses Review of Systems Constitutional: no fever, no chills and no anorexia Eyes: + dry eyes Ear, Nose, Mouth, Throat: no problem reported Respiratory: no cough and no dyspnea Cardiovascular: no chest pain Gastrointestinal: + abdominal pain and + nausea; no vomiti ng Genitourinary: no dysuria Musculoskeletal: no back pain Integumentary: no problem reported Neurologic: no localized weakness and no generalized weakness Psychiatric: no behavioral changes Endocrine: no problem reported Hematologic / Lymphatic: no problem reported Results & Data Vital Signs (Past 12 Hours) Vital Signs Temp Pulse Pulse Resp BP Pulse Ox O2 Del Method 10/22/23 08:00 36.4 C L 50 L 16 129/71 96 Room Air 10/22/23 07:28 42 L 10/22/23 02:37 36.5 C 49 L 18 118/71 98 Room Air 10/21/23 23:03 37 L 10/21/23 22:54 36.8 C 39 L 17 115/71 97 Room Air Diagnostic Findings US gallbladder CLINICAL HISTORY: Transaminitis. COMPARISON STUDY: No previous studies for comparison. FINDINGS: Hepatic echogenicity is increased. No suspicious hepatic lesions are present. There is a 1.1 cm hepatic cyst. There is no biliary ductal dilatation. Common bile duct measures 6 mm in caliber. A gallstone within the gallbladder is present. No sonographic Medel sign was elicited. Mild gallbladder distention is noted. There is no gallbladder wall thickening. Pancreatic body is normal. Head and tail are obscured. There is no right hydronephrosis. 2.3 cm right renal cyst is incidentally noted. IMPRESSION: 1. Cholelithiasis. No sonographic evidence for acute cholecystitis. 2. Increased hepatic echogenicity suggestive of hepatic steatosis. 3. No biliary ductal dilatation. Exam(s): MRI MRCP EXAM: MR Abdomen Without Intravenous Contrast, MRCP Protocol CLINICAL HISTORY: Reason for exam: ?choledocholithiasis. TECHNIQUE: Multiplanar magnetic resonance images of the abdomen without intravenous contrast using MRCP protocol. COMPARISON: No relevant prior studies available. FINDINGS: Bile ducts: Common bile duct is unremarkable. No choledocholithiasis. Common bile duct is within normal limits. Pancreatic duct is unremarkable. Gallbladder: Cholelithiasis. Liver: Multiple intrahepatic cysts. Pancreas: Unremarkable. No ductal dilation. Spleen: Unremarkable. No splenomegaly. Adrenals: Unremarkable. No mass. Kidneys and ureters: Unremarkable. No hydronephrosis. Stomach and bowel: Unremarkable. No obstruction. IMPRESSION: Cholelithiasis without evidence of acute cholecystitis No choledocholithiasis.
--- NOTE | 2023-10-22 12:03 | Communication Note ---
Date of Service: October 22, 2023 Patient's laboratory testing and imaging reviewed. Despite negative MCRP, laboratory imaging suggestive of biliary obstructive process and known choleli thiasis. Unfortunately, there is no biliary coverage available for GI today or tomorrow. Therefore, recommend transfer to tertiary facility with EUS/ERCP capabilities.
--- NOTE | 2023-10-22 12:58 | Cardiology Consultation ---
Date of Consultation October 22, 2023 Assessment & Plan (1) Sinus bradycardia: (2) Hypertension: (3) Moderate mitral regurgitation: (4) Abdominal pain: (5) Mild aortic regurgitation: (6) Elevated LFTs: Plan His chest/abdominal pain appears to be biliary colic, possibly passed stone given absence of evidence for cholecystitis currently. No evidence of ongoing myocardial ischemia (serial troponins negative and ECG nonspecific). His sinus bradycardia appears longstanding and asymptomatic and is almost certainly secondary to verapamil use. Although vagal stimuli could exacerbate bradycardia, even when he is asymptomatic his heart rate runs in the 30 to 40 bpm range at night. Although well-tolerated, there appears to be no reason for him to have a subphysiologic heart rate through medication, recommend that he remain off verapamil and continue on losartan. Would hold hydrochlorothiazide for now since he is n.p.o. and receiving IV fluids. When restarted, would recommend using only 25 mg hydrochlorothiazide daily, as higher doses do not have increased efficacy but do have increased side effects. If he does become hypertensive, would recommend amlodipine in preference to verapamil to allow more physiologic heart rate. If he does develop tachycardia, could consider a slightly less negative chronotropic calcium channel margarita such as diltiazem or could utilize metoprolol. He does have mild to moderate valvular disease which is asymptomatic, no need for specific follow-up other than repeat echocardiogram in a few years. Further recommendations regarding his vasoactive medications depending on his hemodynamics over the remainder of his hospitalization. I will ask Dr. Ovalles to check on the patient's hemodynamics tomorrow and offer further recommendations. History of Present Illness Reason for Consultation: sinus bradycardia, chest/epigastric pain Requesting Physician: Beth López MD Attending Physician: Beth López MD History of Present Illness 68-year-old male with longstanding hypertension, no other cardiac history and generally healthy, was admitted 10/21/2023 with epigastric/chest discomfort which appears due to biliary colic, noted incidentally to have relative bradycardia. Patient was placed on verapamil in 1994 after an episode of apparent hypertensive urgency (markedly elevated BP for which he was hospitalized but did not undergo catheterization). He does not recall any history of [place] or tachydysrhythmia. 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 He has fairly longstanding asymptomatic sinus bradycardia, an ECG from 2 years ago showed sinus bradycardia 51 bpm. Several weeks ago he had tamsulosin discontinued after a visit to his PCP when he noted frequent orthostatic symptoms. His orthostatic symptoms have not recurred and he felt well until just prior to admission when he developed abdominal and chest discomfort, due to bradycardia he was given atropine by EMS, but ultimately his symptoms appear to have been due to biliary colic. Although ECG showed sinus bradycardia with some nonspecific ST-T wave abnormalities, 4 separate troponin draws were 11.8 or less. He was completely comfortable at the time of my evaluation and denied any chest pain, dyspnea, abdominal pain, or of any other symptoms. Telemetry overnight showed sinus bradycardia in the 30-50 bpm range with no heart block or significant pauses. Allergies Allergy/AdvReac Type Severity Reaction Status Date / Time No Known Allergies Allergy Verified 10/21/23 16:58 Home Medications Medication Instructions Recorded Confirmed Type hydrochlorothiazide 50 mg tablet 50 mg PO DAILY 07/26/21 10/21/23 History losartan 100 mg tablet 100 mg PO DAILY 07/26/21 10/21/23 History potassium chloride 20 mEq 40 meq PO DAILY 07/26/21 10/21/23 History tablet,extended release(part/cryst) verapamil 240 mg 24 hr 240 mg PO DAILY 07/26/21 10/21/23 History capsule,extended release cholecalciferol (vitamin D3) 50 150 mcg PO DAILY 10/21/23 10/21/23 History mcg (2,000 unit) capsule (Vitamin D3) Patient History Medical History History of kidney stones Hypertension COVID-19 Social History Smoking Status: Never smoker Second Hand Exposure: No; Do You Dip or Chew Tobacco: No; Hx Alcohol Use: Yes Hx Substance Use: No Preferred Language: Yakut Communication Ability: Effective Flight Operation Coordinator Required: No Beliefs That Will Affect Care: None Current Living Situation: Spouse Other Information That Helps Us Care for You: No Feels Safe at Home: Yes Safety Concerns: Feels Safe At This Time Assistive Devices: None Physical Exam Physical Exam: Adult white male who appears comfortable. BP normotensive. Pulse 50 bpm and regular. Respirations 16 and unlabored. Skin: no ecchymoses or generalized lesions. HEENT: unremarkable. Neck: JVP at the clavicle at 90 degrees, no carotid bruits. Lungs: clear bilaterally. Cardiac: regular/bradycardic rhythm, normal S1-2, 2/6 apical holosystolic murmur rating to the axilla, no diastolic murmur. Abdomen: benign. Nontender currently. Extremities: no edema, dorsalis pedis and radial pulses intact. Neurologic: normal affect and conversation, nonfocal. Results & Data Vital Signs (Past 12 Hours) Vital Signs Temp Pulse Pulse Resp BP Pulse Ox O2 Del Method 10/22/23 08:00 97.5 F L 50 L 16 129/71 96 Room Air 10/22/23 07:28 42 L 10/22/23 02:37 97.7 F 49 L 18 118/71 98 Room Air Laboratory Results Troponin as per HPI. Hemoglobin 13.6 with normal white count and platelet count. Normal electrolytes, BUN 16, creatinine 0.86. Bilirubin 5.1, AST 249, ALT 470, alkaline phosphatase 213. Diagnostic Findings Admission ECG showed sinus bradycardia [address] depression anteriorly and diffuse T wave flattening, no prior for comparison. Second ECG showed sinus bradycardia 53 bpm with minor anteroseptal T wave inversions but no ST depression. Echocardiogram showed EF 55 to 60% with mild LVH no wall motion abnormalities, mildly dilated RV with normal RV function, mild AI/moderate MR/mild pulmonary hypertension. Compared with 2015 study, mitral regurgitation severity has increased mild pulmonary hypertension now seen. Chest x-ray unremarkable. Gallbladder ultrasound and MRI both showed cholelithiasis. PG Care Time/CCT Total # of Minutes Spent Total Time Spent with Patient: Total time spent is greater than 50% in coordination of care (as documented) at patient's floor/unit and/or counseling patient: Coding Level of Care Code 02513 IN/OBS CONSULT LVL 4,60M Diagnoses Sinus bradycardia R00.1 Hypertension I10 Moderate mitral regurgitation I34.0 Abdominal pain R10.9 Mild aortic regurgitation I35.1 Elevated LFTs R79.89
--- NOTE | 2023-10-22 16:11 | Discharge Summary ---
Date of Service October 22, 2023 Admission HPI Per Admitting Provider Aman Garcia is a 68 year old male who presents to the ER with shortness of breath and epigastric pain. The two symptoms appear to correlate and are intermittent - he is currently pain free with no shortness of breath when seen in the ER. Epigastric pain today started around 9am - started mildly and progressively got worse. Improved with atropine given by EMS and IV fluids given in the ER. Associated nausea. Pain constant in upper abdomen radiating to both sides. Severity 8/10 at worse which occurred within a half hour of starting. Lasted total of 4 hours. No association with exertion or eating. He was given atropine by EMS due to bradycardia which he reports helped his symptoms although his heart rate is currently in the low 30s and he is not having any symptoms at this time. He notes two other similar episodes on Thursday and Thursday. 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 On Thursday it occurred while dragging the Lina tree although this was more shortness of breath than the pain. He reports no recent changes to his medications and he has been on verapamil for years with no recent changes to the dosing. Although he does note during his last PCP appointment 2 weeks ago his heart rate was low in the 40s and his doctor did mention something about the verapamil but he stopped the tamsulosin at that time instead. He denies any prior issues with his liver, gallbladder or gallstones. Principal Diagnosis jaundice, abdominal pain, suspected choledocholithiasis Discharge Exam PHYSICAL EXAMINATION Last 24h vital signs reviewed, see documentation in flowsheet General: comfortable appearing, no distress HEENT: Normocephalic, atraumatic, pupils round and equal, sclerae slightly icteric, no conjunctival injection, moist mucus membranes Lungs: Normal respiratory effort. Clear to auscultation bilaterally. No RRW Heart: Regular rate and rhythm, no murmurs. No JVD Abdomen: Soft, nontender, nondistended. Bowel sounds present. Extremities: Warm, dry, well-perfused. No extremity edema. Neuro: Alert and oriented x 4, face symmetric, moves 4 extremities well Psych: Normal affect and behavior Discharge Data Allergies Allergy/AdvReac Type Severity Reaction Status Date / Time No Known Allergies Allergy Verified 10/21/23 16:58 Consultations 10/21/23 22:05 Consult General Surgery Routine 10/22/23 11:34 Consult Gastroenterology Routine Ordered Studies 10/21/23 13:58 US gallbladder Stat 10/21/23 17:35 MR MRCP Routine Chest X-Ray 10/21/23 12:56 XR chest 1V portable HISTORY: 68 years-old Male Chest pain, nonspecific COMPARISON: 07/26/2021 TECHNIQUE: AP view of the chest FINDINGS: Cardiac silhouette is enlarged. There is no pneumothorax, pleural effusion or airspace consolidation. The patient is mildly rotated towards the left. Unchanged sclerotic appearance of the shoulders, possibly representing Paget's disease. IMPRESSION: No acute process of the chest. ACT 112: Negative or not required by law. The above report was generated using voice recognition software. It may contain grammatical, syntax or spelling errors. Electronically signed by: Ronny Alexandra M.D. 10/21/2023 1:34 PM Gallbladder Ultrasound 10/21/23 13:58 US gallbladder CLINICAL HISTORY: Transaminitis. COMPARISON STUDY: No previous studies for comparison. FINDINGS: Hepatic echogenicity is increased. No suspicious hepatic lesions are present. There is a 1.1 cm hepatic cyst. There is no biliary ductal dilatation. Common bile duct measures 6 mm in caliber. A gallstone within the gallbladder is present. No sonographic Medel sign was elicited. Mild gallbladder distention is noted. There is no gallbladder wall thickening. Pancreatic body is normal. Head and tail are obscured. There is no right hydronephrosis. 2.3 cm right renal cyst is incidentally noted. IMPRESSION: 1. Cholelithiasis. No sonographic evidence for acute cholecystitis. 2. Increased hepatic echogenicity suggestive of hepatic steatosis. 3. No biliary ductal dilatation. ACT 112: Negative or not required by law. Electronically signed by: Benedict Barrera M.D. 10/21/2023 3:50 PM Cholangiopancreatography MRI 10/21/23 17:35 Exam(s): MRI MRCP EXAM: MR Abdomen Without Intravenous Contrast, MRCP Protocol CLINICAL HISTORY: Reason for exam: ?choledocholithiasis. TECHNIQUE: Multiplanar magnetic resonance images of the abdomen without intravenous contrast using MRCP protocol. COMPARISON: No relevant prior studies available. FINDINGS: Bile ducts: Common bile duct is unremarkable. No choledocholithiasis. Common bile duct is within normal limits. Pancreatic duct is unremarkable. Gallbladder: Cholelithiasis. Liver: Multiple intrahepatic cysts. Pancreas: Unremarkable. No ductal dilation. Spleen: Unremarkable. No splenomegaly. Adrenals: Unremarkable. No mass. Kidneys and ureters: Unremarkable. No hydronephrosis. Stomach and bowel: Unremarkable. No obstruction. IMPRESSION: Cholelithiasis without evidence of acute cholecystitis No choledocholithiasis. Electronically signed by: Tutu Maher MD 10/21/23 21:26 PM Orbit X-Ray 10/21/23 18:17 XR orbits for MRI HISTORY: 68 years-old Male Screening for foreign body for MRI COMPARISON: Head CT 07/26/2021 TECHNIQUE: 3 views of the orbits FINDINGS: No opaque foreign body of the orbits. Paranasal sinuses and mastoid air cells appear clear. Dental amalgam hardware. IMPRESSION: No opaque foreign body in the orbits. ACT 112: Negative or not required by law. The above report was generated using voice recognition software. It may contain grammatical, syntax or spelling errors. Electronically signed by: Ronny Alexandra M.D. 10/21/2023 6:43 PM 10/22/23 06:56 10/22/23 06:56 10/22/23 10/22/23 10/21/23 Range/Units 06:56 00:36 16:40 WBC 5.53 (4.8-10.8) K/ul RBC 4.54 L (4.70-6.10) M/uL Hgb 13.6 L (14.0-18.0) g/dl Hct 39.2 L (42.0-52.0) % MCV 86.3 (80.0-100.0) fL MCH 30.0 (25.0-34.0) pg MCHC 34.7 (32.0-36.0) g/dL RDW Std Deviation 38.5 (36.4-46.3) fL RDW Coeff of Al 12.2 (11.5-14.5) % Plt Count 188 (130-400) K/uL MPV 9.9 (9.4-12.4) fL Immature Gran % (Auto) 0.4 % Neut % (Auto) 62.7 % Lymph % (Auto) 23.0 % [place] % (Auto) 9.2 % Eos % (Auto) 4.3 % Baso % (Auto) 0.4 % Neut # (Auto) 3.47 (1.40-6.50) K/uL Lymph # (Auto) 1.27 (1.20-3.40) K/uL [place] # (Auto) 0.51 (0.11-0.59) K/uL Eos # (Auto) 0.24 (0.00-0.50) K/uL Baso # (Auto) 0.02 (0.00-0.20) K/uL Immature Gran # (Auto) 0.02 (0.01-0.20) K/uL Sodium 138 (136-145) mmol/L Potassium 3.8 (3.5-5.1) mmol/L Chloride 106 (98-107) mmol/L Carbon Dioxide 25 (21-32) mmol/L Anion Gap 7 (3-11) BUN 16 (6-23) mg/dl Creatinine 0.86 (0.6-1.4) mg/dl Est Cr Clr Drug Dosing 93.2 ml/min Est GFR ( Amer) 102.5 ml/min Est GFR (Non-Af Amer) 88.5 ml/min BUN/Creatinine Ratio 18.6 (10-20) Glucose 91 (70-99(Fasting)) mg/dl Calcium 9.5 (8.6-10.3) mg/dl Iron 109 (35-175) mcg/dl TIBC 293 (250-450) mcg/dl Unsaturated IBC 184 (155-355) mcg/dl Transferrin % Sat 37 (20-50) % Total Bilirubin 5.1 H D (0.2-1.0) mg/dl Direct Bilirubin 2.8 H (0-0.2) mg/dl AST 249 H (13-39) U/L ALT 470 H (7-52) U/L Alkaline Phosphatase 213 H (34-104) U/L Total Creatine Kinase 95 (30-223) U/L Troponin I High Sens 11.8 11.0 10.4 (0-20) pg/ml Total Protein 6.6 (6.0-8.3) gm/dl Albumin 3.8 (3.4-5.0) gm/dl TSH 1.318 (0.300-4.500) uIu/ml Acetaminophen < 3 L (10-30) ug/ml Ethyl Alcohol mg/dL < 10.0 (<10.0) mg/dl Hepatitis A IgM Ab Pending Hep Bs Antigen Pending Hep Bs Ag Confirmation Pending Hep B Core IgM Ab Pending Hepatitis C Ab (EIA) Pending Hospital Course (1) Elevated LFTs: Mr. Lees presented with multiple episodes of upper abdominal pain radiating bilaterally around to the back associated with nausea but no vomiting and no fever. He had an episode Thursday, Thursday, intermittently in between and the day of admission which lasted at least 4 hours. Pain has resolved at this point. ED evaluation was notable for no fever or leukocytosis, CMP was abnormal with bilirubin 2.7, AST 315, ALT 446, alk phos 191, INR 1.1, albumin 3.8. He was not anemic. He underwent abdominal ultrasound which did not show biliary dilatation his gallbladder was dilated and cholelithiasis was present but did not have the appearance of cholecystitis. Hepatic steatosis was noted. General surgery consulted. He had MRCP which did not confirm a stone, common bile duct was 6 mm. He did have some liver cyst. The following morning he remained pain- free however total bilirubin had risen to 5.1 with direct bilirubin of 2.8, AST stable at 249, ALT remained elevated at 470, alk phos slightly increased to 213. General surgeon recommended consultation with gastroenterology for ERCP/EUS for suspicion of choledocholithiasis. I consulted gastroenterology at [facility] who reviewed the case however ERCP/EUS is not available today through after the weekend at this facility. I consulted with Deborah in [place] who graciously accepted the patient in transfer for evaluation by gastroenterology biliary subspecialists. I considered other causes of abnormal LFTs and cholestasis, which seem less likely. He has not had any recent fevers diarrhea jaundice or viral type illness. Hepatitis A/B/C serology was drawn but is pending. He does not drink any significant amount of alcohol, only very occasionally at a social event not even on a weekly basis. He has some hepatic steatosis on ultrasound which may be metabolic/NAFLD given that he does have some obesity with BMI of 29. He has not had any recent antibiotics or other suspicious medications or toxins. Acetaminophen level was negative, BAL was negative. There was no obstructing mass lesion visible on imaging. He will be able to follow-up locally with Dr. Albert, general surgery with [facility], for lap gunjan, after acute issue resolved. (2) Sinus bradycardia: He has had some asymptomatic sinus bradycardia recently he was monitored on telemetry. I wonder if the bradycardia is related to increased vagal tone from his abdominal process. (3) Hypertension: He is treated with losartan, hydrochlorothiazide, and verapamil chronically. There have been no medication changes recently. Total Time Total Time Spent Total Time Spent (In Minutes): I spent 75 minutes on clinical activities and coordinating care on 10/22/2023 including review of chart notes, studies, labs, vitals, examining the patient, counseling the patient, discussion with consultants including general surgery and gastroenterology, arranging transfer to another facility, and documentation. Discharge Plan Discharge Items Patient Disposition: Transfer Acute [facility] Reason For Visit: ELEVATED LFTS, BRADYCARDIA Discharge Diagnosis: jaundice, abdominal pain, suspected choledocholithiasis Activity: Resume your previous activity Non-emergency contact: Primary Care Provider and Surgeon Call non-emergency contact if: you have any medication questions and your symptoms worsen Follow-up/Referrals: Gorge Albert MD [Physician] - Mart Davalos [Primary Care Provider] - Diet: Clear liquid Addtl Attending Provider Instructions: . Pending Studies at Discharge: Yes Studies:: Hepatitis A/B/C serology Stand-Alone Forms: My [facility] Skilled Items Patient informed of condition?: Yes DNR: No Discharge Level of Care: Other Communicable Disease: No Discharge Prognosis: Stable Lines: Peripheral IV Urinary Catheter: No Medications and DC Order Prescriptions: No Action cholecalciferol (vitamin D3) [Vitamin D3] 50 mcg (2,000 unit) Capsule 150 mcg PO DAILY hydrochlorothiazide 50 mg tablet 50 mg PO DAILY potassium chloride 20 mEq tablet,ER particles/crystals 40 meq PO DAILY losartan 100 mg tablet 100 mg PO DAILY verapamil 240 mg capsule,ext rel. pellets 24 hr 240 mg PO DAILY Discharge Orders: Discharge Order (Routine); Ordered 10/22/23 Ordered By: Beth López Admission Data Admit Date/Time: 10/21/23 18:08 Attending Provider: Beth López Admit Provider: Brandon Beltre Primary Care Provider: Mart Davalos Other Providers: Bruce Byers; Tona Zelaya; Shin Nicole; Ebenezer Diaz; Mariah Skelton; Jennyfer Rollins; Maria Luisa Arias; Sylvie Thao; Moose Vincent; Abundio Mehta; Earnest Zelaya; Sanford Herrera; Joao Mason; Ze Desir; Samantha Holland; Miladys Nowak; Dary Arguelles; Sheryl Luciano; Denis Griffin; Slava Watts; David Parks; Patt Contreras; Kashif Huff Jr Coding Level of Care Code None Diagnoses Elevated LFTs R79.89 Sinus bradycardia R00.1 Hypertension I10
[2023-10-23] MEDS: LACTATED RINGER'S 1,000 ML IV SCH ×2 (06:02→14:33)
[2023-10-23 07:29] LABS: Hematocrit (blood only) 38.9 % (42.0-52.0); Hemoglobin 13.3 g/dl (14.0-18.0); Mean Corpuscular Hemoglobin 29.8 pg (25.0-34.0); Mean Corpuscular Hgb Conc 34.2 g/dL (32.0-36.0); Mean Corpuscular Volume 87.2 fL (80.0-100.0); Mean Platelet Volume 10.1 fL (9.4-12.4); Platelet Count 195 K/uL (130-400); RDW Standard Deviation 38.6 fL (36.4-46.3); Red Blood Count 4.46 M/uL (4.70-6.10)
[2023-10-23 07:47] LABS: INR 1.1 (0.9-1.1); Prothrombin Time 12.1 Seconds (9.0-12.0)
[2023-10-23 07:51] LABS: Albumin Globulin Ratio 1.3 (0.9-2); Albumin Level 3.7 gm/dl (3.4-5.0); BUN Creatinine Ratio 14.7 (10-20); Bilirubin,Total 3.7 mg/dl (0.2-1.0); Calcium 9.4 mg/dl (8.6-10.3); Creatinine Clr Calc Pharmacy 84.7 ml/min; Est GFR (African American) 94.3 ml/min; Est GFR (Non-African American) 81.3 ml/min; Globulin 2.8 gm/dl (2.5-4.0); Potassium 3.8 mmol/L (3.5-5.1); Total Protein 6.5 gm/dl (6.0-8.3)
[2023-10-23] MEDS: LOSARTAN POTASSIUM 50 MG TAB PO SCH (09:54)
[2023-10-23 11:47] LABS: HBSAG NON-REACTIVE (NON-REACTIVE); Hepatitis A Antibody IgM NON-REACTIVE (NON-REACTIVE); Hepatitis B Core Antibody IgM NON-REACTIVE (NON-REACTIVE)
--- NOTE | 2023-10-23 16:26 | Hospitalist Progress Note ---
Date of Service October 23, 2023 Assessment & Plan (1) Elevated LFTs: Plan: Mr. Garcia presented with multiple episodes of upper abdominal pain radiating bilaterally around to the back associated with nausea but no vomiting and no fever. He had an episode Thursday, Thursday, intermittently in between and the day of admission which lasted at least 4 hours. Pain has resolved at this point. ED evaluation was notable for no fever or leukocytosis, CMP was abnormal with bilirubin 2.7, AST 315, ALT 446, alk phos 191, INR 1.1, albumin 3.8. He was not anemic. He underwent abdominal ultrasound which did not show biliary dilatation his gallbladder was dilated and cholelithiasis was present but did not have the appearance of cholecystitis. Hepatic steatosis was noted. General surgery consulted. He had MRCP which did not confirm a stone, common bile duct was 6 mm. He did have some liver cyst. The following morning he remained pain- free however total bilirubin had risen to 5.1 with direct bilirubin of 2.8, AST stable at 249, ALT remained elevated at 470, alk phos slightly increased to 213. General surgeon recommended consultation with gastroenterology for ERCP/EUS for suspicion of choledocholithiasis. I consulted gastroenterology at [facility] who reviewed the case however ERCP/EUS is not available today through after the weekend at this facility. I consulted with Deborah in [place] who graciously accepted the patient in transfer for evaluation by gastroenterology biliary subspecialists. I considered other causes of abnormal LFTs and cholestasis, which seem less likely. He has not had any recent fevers diarrhea jaundice or viral type illness. Hepatitis A/B/C serology was drawn but is pending. He does not drink any significant amount of alcohol, only very occasionally at a social event not even on a weekly basis. He has some hepatic steatosis on ultrasound which may be metabolic/NAFLD given that he does have some obesity with BMI of 29. He has not had any recent antibiotics or other suspicious medications or toxins. Aceta minophen level was negative, BAL was negative. There was no obstructing mass lesion visible on imaging. He will be able to follow-up locally with Dr. Albert, general surgery with [facility], for lap gunjan, after acute issue resolved. 10/23: There unfortunately were no beds available since yesterday. Remains pain free and bilirubin improved a little but remains elevated, alk phos not improved, AST/ALT a little lower. I contacted [facility] and [facility] this am to enquire again, Dr. Vincent advised EUS/ERCP however, after extensive discussions today earliest could be done is if transferred to [place], Thursday at earliest. Updated Dr. Albert. -IV fluids -npo since may have bed assignment at [facility] this afternoon -daily AM LFT -does not appear to have acute cholecystitis at this time -clarified his PCP is with [facility]. Has seen [facility] for colonoscopy in 2021. (2) Sinus bradycardia: Plan: He has had some asymptomatic sinus bradycardia recently he was monitored on telemetry. I wonder if the bradycardia is related to increased vagal tone from his abdominal process. Cardiology consulted, appreciate. Recommended discontinuation of verapamil and continue ARB for hypertension. Reviewed tele. Reveiewed TTE: EF 55-60%, mild concentric LVH, mild dilation of RV, mild AR, mod MR, mild dilation of LA, RVSP 30-40, normal CVP based on IVC diameter and respiratory variation. (3) Hypertension: Plan: He is treated with losartan, hydrochlorothiazide, and verapamil chronically. There have been no medication changes recently. Admission and Anticipated Discharge Date Admission Date: October 21, 2023 Subjective continues without any abdominal pain today and overnight. no nausea. no dyspne a. has had some sinus bradycardia but asymptomatic. reviewed tele Physical Exam Physical Exam: PHYSICAL EXAMINATION Last 24h vital signs reviewed, see documentation in flowsheet exam unchanged 10/23: General: comfortable appearing, no distress HEENT: Normocephalic, atraumatic, pupils round and equal, sclerae slightly icteric, no conjunctival injection, moist mucus membranes Lungs: Normal respiratory effort. Clear to auscultation bilaterally. No RRW Heart: Regular rate and rhythm, no murmurs. No JVD Abdomen: Soft, nontender, nondistended. Bowel sounds present. Extremities: Warm, dry, well-perfused. No extremity edema. Neuro: Alert and oriented x 4, face symmetric, moves 4 extremities well Psych: Normal affect and behavior Results & Data Results & Data Vital Signs (Past 12 Hours) Vital Signs Temp Pulse Pulse Resp BP Pulse Ox O2 Del Method 10/23/23 10:20 36.4 C L 44 L 19 134/71 96 Room Air 10/23/23 07:54 36.4 C L 43 L 18 130/75 96 Room Air 10/23/23 07:47 42 L Laboratory Results 10/23/23 10/21/23 Range/Units 06:35 16:40 WBC 6.70 (4.8-10.8) K/ul RBC 4.46 L (4.70-6.10) M/uL Hgb 13.3 L (14.0-18.0) g/dl Hct 38.9 L (42.0-52.0) % MCV 87.2 (80.0-100.0) fL MCH 29.8 (25.0-34.0) pg MCHC 34.2 (32.0-36.0) g/dL RDW Std Deviation 38.6 (36.4-46.3) fL RDW Coeff of Al 12.0 (11.5-14.5) % Plt Count 195 (130-400) K/uL MPV 10.1 (9.4-12.4) fL PT 12.1 H (9.0-12.0) Seconds INR 1.1 (0.9-1.1) Sodium 139 (136-145) mmol/L Potassium 3.8 (3.5-5.1) mmol/L Chloride 106 (98-107) mmol/L Carbon Dioxide 26 (21-32) mmol/L Anion Gap 7 (3-11) BUN 14 (6-23) mg/dl Creatinine 0.95 (0.6-1.4) mg/dl Est Cr Clr Drug Dosing 84.7 ml/min Est GFR ( Amer) 94.3 ml/min Est GFR (Non-Af Amer) 81.3 ml/min BUN/Creatinine Ratio 14.7 (10-20) Glucose 89 (70-99(Fasting)) mg/dl Calcium 9.4 (8.6-10.3) mg/dl Total Bilirubin 3.7 H (0.2-1.0) mg/dl AST 125 H (13-39) U/L ALT 337 H (7-52) U/L Alkaline Phosphatase 208 H (34-104) U/L Total Protein 6.5 (6.0-8.3) gm/dl Albumin 3.7 (3.4-5.0) gm/dl Globulin 2.8 (2.5-4.0) gm/dl Albumin/Globulin Ratio 1.3 (0.9-2) Hepatitis A IgM Ab NON-REACTIVE (NON-REACTIVE) Hep Bs Antigen NON-REACTIVE (NON-REACTIVE) Hep Bs Ag Confirmation TNP Hep B Core IgM Ab NON-REACTIVE (NON-REACTIVE) Hepatitis C Ab (EIA) NON-REACTIVE (NON-REACTIVE) PG Care Time/CCT Total # of Minutes Spent Total Time Spent with Patient: I personally spent: 65 minutes today on clinical care activities including: reviewing chart notes and vital signs reviewing labs reviewing studies TTE discussion with [employer] consultant(s) - two gastroenterology groups, transfer center nurse examining and counseling the patient writing orders documentation Coding Level of Care Code 49698 SUB INP/OBS CARE 3/50MIN Diagnoses Elevated LFTs R79.89 Sinus bradycardia R00.1 Hypertension I10
== END 2023-10-23 19:27 | disposition short-term general hospital (02) | DRG 446 ==
LOC: ED 12:38 → SUATTDRO 18:08 → 2S 18:08